=== PATIENT | male | born 1970 | race Caucasian/White ===

== ENCOUNTER 2021-07-27 20:38 | Emergency (ER) | payer BC ==
[2021-07-27 21:06] VITALS: BP 155/97; PULSE 83; RESP 16; TEMP 98.4
--- NOTE | 2021-07-27 22:26 | ED ---
Wound/Laceration HPI - General Chief Complaint: Wound/Laceration Stated Complaint: L hand laceration Time Seen by Provider: 07/27/21 22:21 Source: patient, RN notes reviewed Mode of arrival: ambulatory Limitations: no limitations - Related Data Allergies Allergy/AdvReac Type Severity Reaction Status Date / Time No Known Allergies Allergy Verified 07/27/21 21:06 Review of Systems ROS Statement: Those systems with pertinent positive or pertinent negative responses have been documented in the HPI. ROS Other: All systems not noted in ROS Statement are negative. Past Medical History Past Medical History: No Reported History History of Any Multi-Drug Resistant Organisms: None Reported Past Surgical History: No Surgical Hx Reported Past Psychological History: No Psychological Hx Reported Smoking Status: Current every day smoker Past Alcohol Use History: None Reported Past Drug Use History: None Reported General Exam Limitations: no limitations Course Vital Signs 07/27/21 21:03 Temperature 98.4 F Pulse Rate 83 Respiratory 16 Rate Blood Pressure 155/97 O2 Sat by Pulse 97 Oximetry Disposition Referrals: Michael Saldana MD [Primary Care Provider] - 1-2 days
[2021-07-27] MEDS ORDERED: LIDOCAINE 1% INJ 10MG/ML (5 ML VIAL-PF) SQ ONE (23:44)
[2021-07-28] MEDS ORDERED: TOPICAL SKIN ADHESIVE 1 EACH AMP TOPICAL ONE (00:45)
--- NOTE | 2021-07-28 00:55 | ED ---
Wound/Laceration HPI - General Chief Complaint: Wound/Laceration Stated Complaint: L hand laceration Time Seen by Provider: 07/27/21 22:21 Source: patient Mode of arrival: ambulatory Limitations: no limitations - History of Present Illness Initial Comments: Patient is a 51-year-old male presenting with chief complaint of Left index finger laceration. Patient injured the finger with a steak knife this morning. He attempted to bandage it himself, however later on it continued to bleed. He denies any numbness, tingling, weakness, loss of range of motion. His last tetanus shot was yesterday. - Related Data Allergies Allergy/AdvReac Type Severity Reaction Status Date / Time No Known Allergies Allergy Verified 07/27/21 21:06 Review of Systems ROS Statement: Those systems with pertinent positive or pertinent negative responses have been documented in the HPI. ROS Other: All systems not noted in ROS Statement are negative. Past Medical History Past Medical History: No Reported History History of Any Multi-Drug Resistant Organisms: None Reported Past Surgical History: No Surgical Hx Reported Past Psychological History: No Psychological Hx Reported Smoking Status: Current every day smoker Past Alcohol Use History: None Reported Past Drug Use History: None Reported General Exam Limitations: no limitations General appearance: alert, in no apparent distress Head exam: Present: atraumatic, normocephalic, normal inspection Eye exam: Present: normal appearance, EOMI. Absent: scleral icterus Neck exam: Present: normal inspection Neurological exam: Present: alert, oriented X3, CN II-XII intact Psychiatric exam: Present: normal affect, normal mood Skin exam: Present: warm, dry, normal color. Absent: rash Expanded Type of lesion: Present: laceration (Left index finger, approximately 2 cm in length, superficial.) Course Vital Signs 07/27/21 21:03 Temperature 98.4 F Pulse Rate 83 Respiratory 16 Rate Blood Pressure 155/97 O2 Sat by Pulse 97 Oximetry Medical Decision Making - Medical Decision Making Patient is a 51-year-old male presenting with chief complaint of left index finger laceration. He cut his finger with a steak knife this morning. His last tetanus shot was yesterday. On examination there is a superficial 2 cm laceration present on the left index finger. He has full range of motion, sensation, strength. Wound was closed with Dermabond. Educated the patient on signs of infection. Follow-up with PCP in one week. Educated on wound care. Report back to ER with any new or worsening symptoms. I discussed return parameters alarm symptoms. Answered all questions. Patient conveyed verbal understanding and agreed to the plan. My attending is Dr. Silvestre. Disposition Clinical Impression: Laceration Disposition: HOME SELF-CARE Condition: Good Instructions (If sedation given, give patient instructions): Finger Laceration (ED), Skin Adhesive Care (ED) Additional Instructions: Follow-up with PCP in one week. Report back to ER with any new or worsening symptoms. Monitor for signs of infection, including but not limited to redness, swelling, discharge, warmth, fever, chills. Avoid ointment based products over the skin adhesive, as this will cause the adhesive to break down. Is patient prescribed a controlled substance at d/c from ED?: No Referrals: Michael Saldana MD [Primary Care Provider] - 08/04/21 Time of Disposition: 00:55
== END 2021-07-28 01:21 | disposition home or self-care (01) ==
LOC: EC 20:38
DX: S61.412A Laceration without foreign body of left hand, initial encounter (principal); W26.0XXA Contact with knife, initial encounter
CPT/HCPCS: 12001; 99282; J2001; 99283